=== PATIENT | female | born 1990 | race Caucasian/White ===

== ENCOUNTER 2019-12-11 09:04 | Outpatient (CLI) | payer BC ==
--- NOTE | 2019-12-11 09:29 | RAD ---
RADIOGRAPH LUMBAR SPINE 2 VIEWS: DATE: 12/11/2019 HISTORY: 29-year-old female follow-up lumbar compression fracture. COMPARISON: 11/24/2019 FINDINGS: There are 5 lumbar-type vertebrae. Again noted is the compression fracture involving the superior por tion of the L1 vertebral body. There is questionable minimal retropulsion. Overall mild, approximately 20% or less loss of height, is unchanged. The rest of the vertebral body heights are ma intained. IMPRESSION: No interval change in the compression fracture of L1 lumbar vertebra.
== END 2019-12-11 09:05 | disposition home or self-care (01) ==
LOC: BICRAD 09:04
PROVIDERS: ATTEND Neurological Surgery
DX: M48.56XD Collapsed vertebra, not elsewhere classified, lumbar region, subsequent encounter for fracture with routine healing (principal)
CPT/HCPCS: 72100

== ENCOUNTER 2019-12-28 16:31 | Outpatient (CLI) | payer BC ==
--- NOTE | 2019-12-28 17:16 | RAD ---
LUMBAR SPINE: 12/28/19 Two views. HISTORY: Compression fracture. COMPARISON: 12/11/19. Mild anterior compression fracture at L1 is again noted. There is mild compression of the superior en d plate with mild anterior wedging which appears stable form 12/11/19. The other lumbar vertebrae maint ain normal height and alignment. There is mild loss of disc space at T12-L1. The disc space below L1 appear normally maintained. Alignment is normal with no evidence of listhesis. IMPRESSION: Mild anterior compression of the L1 vertebrae appears stable. POS: OFF
== END 2019-12-28 16:32 | disposition home or self-care (01) ==
LOC: BICRAD 16:31
PROVIDERS: ATTEND Neurological Surgery
DX: S32.019D Unspecified fracture of first lumbar vertebra, subsequent encounter for fracture with routine healing (principal)
CPT/HCPCS: 72100